=== PATIENT | male | born 1960 | race Caucasian/White ===

== ENCOUNTER 2022-11-21 12:53 | Outpatient (CLI) | payer OTHER, SELFPAY | END 2022-11-21 12:54 | disposition home or self-care (01) | PROVIDERS: PCP Internal Medicine; Visit Provider Otolaryngology | DX: H93.12 Tinnitus, left ear (principal); H90.3 Sensorineural hearing loss, bilateral | CPT/HCPCS: 92557; 92567 ==

== ENCOUNTER 2025-01-21 07:56 | Outpatient (CLI) | payer OTHER, SELFPAY ==
--- OUTSIDE RECORDS SUMMARY | 2025-01-21 08:02 | XMS_ITS | Clinical Summary ---
Author Organization [facility] Address [address] [place] [address] Care Team Providers Care Testing Coordinator Name Role Phone No, Physician Primary Care Provider [phone] Allergies No known active allergies Medications OneTouch Verio test strips strip 08/11/2020 Active Trulicity 1.5 mg/0.5 mL pen injector 10/18/2020 Active OneTouch Delica Plus Lancet 33 gauge misc 10/18/2020 Active losartan (COZAAR) 25 mg tablet 10/18/2020 Active metFORMIN XR (GLUCOPHAGE XR) 500 mg 24 hr tablet 10/18/2020 Active metoprolol XL (TOPROL-XL) 50 mg extended release tablet 10/18/2020 Acti ve pravastatin (PRAVACHOL) 20 mg tablet 10/18/2020 Active sertraline (ZOLOFT) 50 mg tablet 10/18/2020 Active traMADoL (ULTRAM) 50 mg tablet Take 50 mg by mouth 2 (two) times a day as needed 10/04/2020 Active naproxen (NAPROSYN) 500 mg tablet Take 1 tablet (500 mg total) by mouth 2 (two) times a day with meals 60 tablet 2 10/19/2020 Active Active Problems Problem Noted Date Diagnosed Date Primary osteoarthritis of right knee 10/19/2020 Hypersomnia with sleep apnea 09/11/2012 Overview (08/22/2016): Hypersomnia with sleep apnea Adiposity 09/11/2012 Overview (08/22/2016): Obesity Obstructive sleep apnea syndrome 09/11/2012 Overview (08/23/2016): Obstructive sleep apnea syndrome Surgical History Surgery Date Site/Laterality Comments CHOLECYSTECTOMY Cholecystectomy Medical History Medical History Date Comments Hypertension Hypertension Family History Medical History Relation Name Comments Diabetes Father Diabetes mellit us; Relation Name Status Comments Father Social History Tobacco Use Types Packs/Day Years Used Date Smoking Tobacco: Never Assessed Alcohol Use Standard Drinks/Week Comments No 0 (1 standard drink = 0.6 oz pur e alcohol) Sex and Gender Information Value Date Recorded Sex Assigned at Not on file 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 Gender Identity Not on file Sexual Orientation Not on file Obstetrics History Last Filed Vital Signs Vital Sign Reading Time Taken Comments Blood Pressure 160/92 10/19/2020 10:16 AM CDT Pulse 109 10/19/2020 10:16 AM CDT Temperature - - Respiratory Rate - - Oxygen Saturation 97% 12/17/2013 2:56 PM CDT Inhaled Oxygen Concentration - - Weight 115.6 kg (254 lb 12.8 oz) 2020 10:16 AM CDT Height 170.2 cm (5' 7) 10/19/2020 10:1 6 AM CDT Body Mass Index 39.91 10/19/2020 10:16 AM CDT Plan of Treatment Health Maintenance Due Date Last Done Comments Depression Screening 1960 Fall Risk Assessment 1960 Hepatitis C Screening 1960 Prostate Cancer Screening-PSA 1960 Zoster Vaccine (1 of 2) 2008 Abdominal Aortic Aneurysm (A AA) Screen 10/15/2023 Well Visit 65+ 10/15/2023 Colon Cancer Screening-Colonoscopy 04/26/20242013, 04/26/2014 Influenza Vaccine (#1) 2025 , 05/26/2018, 02/15/2017, Additional history exists DTaP/Tdap/Td Vaccine (2 - Td or Tdap) 01/12/2026 01/13/2016, 02/27/2005 Hepatitis B Screening Completed 07/31/2005 , 02/27/2005, 01/26/2005 Pneumococcal vaccine 65+ Completed 03/27/2023, 03/21 Procedures Procedure Name Priority Date/Time Associated Diagnosis Comments COLONOSCOPY IMAGES 04/26/2014 from Last 3 Months or Most Recently Relevant to Health Maintenance Results * COLONOSCOPY IMAGES (04/26/2014) Anatomical Region Laterality Modality Other Narrative 04/26/2014 Ordered by an unspecified provider. us Historical Provider GI PROCEDURE ORDERABLES F inal Result from Last 3 Months or Most Recently Relevant to Health Maintenance Insurance [employer] C[employer] ALLEGIANCE Care Teams Testing Coordinator Relationship Specialty Start Date End Date No, Physician PCP - General 08/16/23
--- OUTSIDE RECORDS SUMMARY | 2025-01-21 08:02 | XMS_ITS | Clinical Summary ---
Author Organization [facility] Address [address] [place] [address] Phone Care Team Providers Care Automatic Blocker Name Role Phone Lis Mensah MD Primary Care Provider [phone] Social History Tobacco Use Types Packs/Day Years Used Date Smoking Tobacco: Never Assessed Sex and Gender Information Value Date Recorded Sex Assigned at Not on file Legal Sex Male 10:22 PM CDT Gender Identity Not on file Sexual Orientation Not on file Plan of Treatment Health Maintenance Due Date Last Done Comments Hepatitis C Virus (HCV) Screening 1960 Cologuard 10/15/2003 Colonoscopy 10/15/2003 Colorectal Cancer Screening 10/15/2003 Immunochemical Fecal Occult Blood 10/15/2003 Zoster Immunization (1 of 2) 2008 Pneumococcal Immunization (50+ years) (2 of 2 - PCV) 04/14/2015 04/14/2014 SARS-COV-2 Immunization ( season) 2024 12/28/2021, 09/09/2020, 08/12/2020 Influenza Immunization (#1) 01/18/2025/0 11/2018, 02/15/2017, 03/16/2016, Additional history exists Respiratory Syncytial Virus (RSV) Immunization (Adult) (1 - 1-dose 75+ series) 2033 Hepatitis B Immunization Completed 006, 02/27/2005, 01/26/2005 Pneumococcal Immunization Combined Discontinued 04/14/2014 DTaP/Tdap/Td Immunization Discontinued 01/13/2016, 03/2005 TdaP Immunization Completed 01/13/2016 Human Papillomavirus (HPV) Immunization Aged Out No longer eligible based on patient's age to complete this topic Meningococcal Immunization (ACWY) Aged Out No longer eligible based on patient's age to complete this topic Rotavirus Immunization Aged Out No lo nger eligible based on patient's age to complete this topic Insurance CIG[employer] on file CIGNA on file CIG[employer] Care Teams Automatic Blocker Relationship Specialty Start Date End Date Lis Mensah MD [address] [place] [address] PCP - General Internal Medicine 10/04/20
--- OUTSIDE RECORDS SUMMARY | 2025-01-21 08:02 | XMS_ITS | Encounter Summary ---
Author Organization [facility] Address [address] [place] [address] Phone Care Team Providers Care Appointment Scheduler Name Role Phone Lis Mensah MD Primary Care Provider [phone] Reason for Referral * Radiology Services (Routine) - Closed Specialty Diagnoses / Procedures Referred By Contac t Referred To Contact Radiology Diagnoses Right knee pain, unspecified chronicity Procedures XR KNEE 1 OR 2 VIEWS RIGHT Sindy Mensah MD Phone: tel: fax: Referral ID Status Reason Start Date Expiration Date Visits Re quested Visits Authorized [id number] Closed 10/04/2020 1 1 Encounter Details Date Type Department Care Team (Latest Contact Info) Description 10/04/2020 Transcribe Orders [facility] Ad[facility] [address] [place] [address] [place] [id number] [address] Right knee pain, unspecified chronicity (Primary Dx) Social History Tobacco Use Types Packs/Day Years Used Date Smoking Tobacco: Never Assessed Sex and Gender Information Value Date Recorded Sex Assigned at Not on file Legal Sex Male 10:22 PM CDT Gender Identity Not on file Sexual Orientation Not on file COVID-19 Exposure Response Date Recorded In the last month, have you been in contact with someone who was confirmed or suspected to have Coronavirus / COVID-19? No / Unsure 10/04/2020 12:10 PM CDT documented as of this encounter Plan of Treatment Not on file documented as of this encounter Results * XR KNEE 1 OR 2 VIEWS RIGHT (10/04/2020 12:59 PM CDT) Anatomical Region Laterality Modality LOWER EXTREMITY, knee Right Digital Ra diography 10/05/2020 3:58 PM CDT Impressions 10/05/2020 4:01 PM CDT IMPRESSION: 1. No acute bony abnormality in the right knee. 2. Mild osteoarthritic changes with very mild narrowing of medial compartment of joint space and tiny tricompartment osteophytes. 3. Small to moderate suprapatellar joint effusion. Narrative 10/05/2020 4:01 PM CDT EXAM DESCRIPTION: XR KNEE 1 OR 2 VIEWS RIGHT REASON FOR STUDY: Medial right knee pain for 8 weeks. No known injury. TECHNIQUE: AP and lateral radiographic views acquired of the right knee. COMPARISON: None FINDINGS: BONES/JOINTS: No acute fracture, malalignment or osseous abnormalities. Tiny tricompartment osteophytes. Very mild narrowing of medial compartment. Small to moderate suprapatellar joint effusion. SOFT TISSUES: Unremarkable. OTHER: No other significant finding. THIS IS AN ELECTRONICALLY VERIFIED FINAL REPORT 10/05/2020 3:58 PM - Electronically signed by Iraj Goldman M.D. RB: [email or web address] Report ID: [id number] Reading Location: [id number] Procedure Note Iraj Goldman MD - 10/05/2020 EXAM DESCRIPTION: XR KNEE 1 OR 2 VIEWS RIGHT REASON FOR STUDY: Medial right knee pain for 8 weeks. No known injury. TECHNIQUE: AP and lateral radiographic views acquired of the right knee. COMPARISON: None FINDINGS: BONES/JOINTS: No acute fracture, malalignment or osseous abnormalities. Tiny tricompartment osteophytes. Very mild narrowing of medial compartment. Small to moderate suprapatellar joint effusion. SOFT TISSUES: Unremarkable. OTHER: No other significant finding. THIS IS AN ELECTRONICALLY VERIFIED FINAL REPORT 10/05/2020 3:58 PM - Electronically signed by Iraj Goldman M.D. RB: [email or web address] Report ID: [id number] Reading Location: [place] [address] IMPRESSION: 1. No acute bony abnormality in the right knee. 2. Mild osteoarthritic changes with very mild narrowing of medial compartment of joint space and tiny tricompartment osteophytes. 3. Small to moderate suprapatellar joint effusion. Sindy Mensah MD IMG DIAGNOSTIC ORDERABLES F inal Result documented in this encounter Visit Diagnoses Diagnosis Right knee pain, unspecified chronicity- Primary Right knee pain, unspecified chronicity documented in this encounter Care Teams Appointment Scheduler Relationship Specialty Start Date End Date Lis Mensah MD [address] [place] [address] PCP - General Internal Medicine 10/04/20 documented as of this encounter
--- OUTSIDE RECORDS SUMMARY | 2025-01-21 08:02 | XMS_ITS | Clinical Summary ---
Author Organization [facility] ([facility]) Aframe [place] Address [address] [place] [id number] Care Team Providers Care Counter Checker Name Role Phone Carisa Heredia MD Primary Care Provider [phone] Allergies No known active allergies Medications blood sugar diagnostic (OneTouch Verio test strips) Strip 1 Strip by See Admin Instructions route see administration instructions. 08/12/19 21 Active lancets (OneTouch Delica Plus Lancet) 33 gauge by See Admin Instructions route see administration instructions. 10/19/19 21 Active aspirin (ECOTRIN EC) 81 mg Tablet, Delayed Release (E.C.) Take 81 mg by mouth daily. Active cyanocobalamin (Vitamin B-12) 1,000 mcg TabletIndications: Vitamin B 12 deficiency Take 1 Tablet (1,000 mcg) by mouth daily. 06/02/19 25 Active Irbesartan (AVAPRO) 75 mg tabletIndications: Type 2 diabetes mellitus with microalbuminuria, without long-term current use of insulin (CMS/HCC) Take 1 Tablet (75 mg) by mouth daily. 90 Tablet 1 10/17/19 25 Active metFORMIN (GLUCOPHAGE) 1,000 mg tablet Take 1 Tablet (1,000 mg) by mouth 2 times daily with meals. 180 Tablet 10/17/19 25 Active rosuvastatin (CRESTOR) 20 mg tabletIndications: Mixed hyperlipidemia Take 1 Tablet (20 mg) by mouth daily. 90 Tablet 1 10/17/19 25 Active sertraline (Zoloft) 100 mg tabletIndications: Anxiety and depression Take 1 Tablet (100 mg) by mouth late in the day. 90 Tablet 1 10/17/19 25 Active empagliflozin (Jardiance) 25 mg tablet Take 1 Tablet (25 mg) by mouth daily in the morning. 90 Tablet 1 11/28/19 Active cholecalciferol, Vitamin D3, (VITAMIN D3) 25 mcg (1,000 unit) Capsule Take by mouth daily. Active dulaglutide (TRULICITY) 4.5 mg/0.5 mL injectionIndicatio ns:Type 2 diabetes mellitus with hyperosmolarity without coma, without long-term current use of insulin (CMS/HCC) Inject 0.5 mL (4.5 mg) by subcutaneous injection every 7 days. 6 mL 1 01/02/20 25 Active dulaglutide (TRULICITY) 4.5 mg/0.5 mL injectionIndicatio ns:Type 2 diabetes mellitus with hyperosmolarity without coma, without long-term current use of insulin (CMS/HCC) Inject 0.5 mL (4.5 mg) by subcutaneous injection every 7 days. 6 mL 1 07/23/19 25 2024 Disconti nued(Reo rder) Active Problems Problem Noted Date Diagnosed Date Hearing loss 09/23/2023 Severe obesity (BMI 35.0-39.9) with comorbidity 03/27/2023 DM (diabetes mellitus), type 2 03/18/2023 Benign hypertension 03/18/2023 Anxiety and depression 03/18/2023 Arthritis of knee 03/18/2023 Hyperlipidemia 03/18/2023 Encounters Date Type Department Care Team Description 01/06/2025 External Device Data STL ABSTRACTION Provider, Abstract 01/01/2025 2:30 PM CDT Office Visit [facility] at [facility] [employer] [place] [address] [place] [place] [address] Carisa Heredia MD Type 2 diabetes mellitus with hyperosmolarity without coma, without long-term current use of insulin ([facility]/HCC) (Primary Dx); Severe obesity (BMI 35.0-39.9) with comorbidity (CMS/HCC); Bilateral hearing loss, unspecified hearing loss type; Benign hypertension; Prostate cancer screening 12/11/2024 Results Follow-Up [facility] at [facility] [employer] [place] [address] [place] [address] Carisa Heredia MD VITAMIN B12 LEVEL, HEMOGLOBIN A1C 12/10/2024 7:40 AM CDT Clinical Support [facility] at Work [employer] [place] [address] [place] [phone] Vitamin B 12 deficiency; Type 2 diabetes mellitus with microalbuminuria, without long-term current use of insulin ([facility]) 12/02/2024 External Device Data STL ABSTRACTION Provider, Abstract 12/02/2024 External Device Data STL ABSTRACTION Provider, Abstract 11/27/2024 Refill [facility] at Work [employer] [place] [address] [place] [phone] Padmini Alvarenga, ANP 11/03/2024 External Device Data STL ABSTRACTION Provider, Abstract from Last 3 Months Immunizations Immunization Administration Dates Next Due (ADACEL/BOOSTRIX)(10 YR UP) TDAP VACCINE, 0.5ML, IM 01/13/2016 (PNEUMOVAX 23)(50 YRS UP) PN EUMOCOCCAL POLYSACCHARIDE (PPV23) 0.5 ML, IM 04/14/2014 (PREVNAR 20)(6 WKS UP) PNEUM OCOCCAL CONJUGATE VACCINE 20-VALENT (PCV20), POLYSACCHARIDE [id number] CONJUGATE, ADJUVANT 0.5 ML (PF) IM 02/24/2024,03/27/2023 (SHINGRIX)(50 YRS UP) ZOSTER VACCINE RECOMBINANT, 0.5 ML, IM 11/25/2023 INFLUENZA VACCINE QUADRIVALENT 6 MOS UP PF IM INFLUENZA VACCINE TRIVALENT SPLIT VIRUS, (6 MOS UP), 0.5ML (PF), IM 03/23/2024 Family History Medical History Relation Name Comments Cancer Father thyroid Stroke Maternal Grandfather Colon Cancer Maternal Grandmother Other Mother pulmonary fibro sis Diabetes Other Testicular Cancer Paternal Grandfather Stroke Paternal Grandmother Relation Name Status Comments Father Maternal Grandfather Maternal Grandmother Mother Other Paternal Grandfather Paternal Grandmother Social History Tobacco Use Types Packs/Day Years Used Date Smoking Tobacco: Former Cigarettes Smokeless Tobacco: Never Tobacco Cessation:Counseling Given: Not Answered Alcohol Use Standard Drinks/Week Comments Not Currently 0 (1 standard drink = 0.6 oz pur e alcohol) past drinker Feeling Safe Answer Date Recorded Are you in a relationship wi th someone who hurts you emotionally and/or physically? No 09/28/2024 Sex and Gender Information Value Date Recorded Sex Assigned at Not on file Legal Sex Male 8:47 AM CDT Gender Identity Not on file Sexual Orientation Not on file Last Filed Vital Signs Vital Sign Reading Time Taken Comments Blood Pressure 124/70 01/01/2025 2:05 PM CDT Pulse 102 01/01/2025 2:05 PM CDT Temperature 36.7 C (98.1 F) 01/01/2025 2:05 PM CDT Respiratory Rate 18 01/01/2025 2:05 PM CDT Oxygen Saturation 98% 01/01/2025 2:05 PM CDT Inhaled Oxygen Concentration - - Weight 106.6 kg (235 lb) 01/01/2025 2:05 PM CDT Height 170.2 cm (5' 7) 01/01/2025 2:05 PM CDT Body Mass Index 36.81 01/01/2025 2:05 PM CDT Plan of Treatment Upcoming Encounters Date Type Department Care Team (Late st Contact Info) Description 03/26/2025 7:20 AM PROJECT BUILDER Clinical Support [facility] at [facility] [employer] [place] [address] [place] [phone] 04/02/2025 2:30 PM PROJECT BUILDER Office Visit [facility] at [facility] [place] [address] [place] [address] Carisa Heredia MD [address] [place] [address] 04/14/2025 2:30 PM PROJECT BUILDER Office Visit [facility] at [facility] [employer] [place] [address] [place] [phone] Carisa Heredia MD [address] [place] [address] Health Maintenance Due Date Last Done Comments FIT-DNA Q 3 years 10/15/2003 FIT/FOBT Q 1 year 10/15/2003 Flex Sig/CT Colonography Q 5 years 10/15/2003 RSV VACCINE (60+ or ) (1 - Risk 60-74 years 1-dose series) 2018 Abdominal Aortic Aneurysm (A AA) Screening 10/15/2023 COVID-19 Vaccine (4 - 2023-2 5 season) 2024 12/28/2021, 09/09/2020, 08/12/2020 ZOSTER VACCINE (2 of 2) 01/20/2024 11/25/2023 Preventative Visit- Commercial 05/20/2024 DIABETES ANNUAL FOOT EXAM 11/24/2024 11/25/2023, 12/2023 INFLUENZA VACCINE (#1) 2024 4, 02/22/2023, 03/30/2022, Additional history exists DIABETES ANNUAL RETINAL EXAM 01/27/2025 01/28/2024 DIABETES MICROALBUMIN ANNUAL SCREEN 05/29/2025 05/29/2024, 11/25/2023, 04/25/2023 LDL CHOLESTEROL ANNUAL 05/29/2025 5, 12/16/2023, 04/25/2023 DIABETES HBA1C Q 6 MONTHS 06/12/20252024, 05/29/2024, 11/25/2023, Additional history exists DTAP/TDAP/TD VACCINES (2 - T d or Tdap) 01/12/2026 01/13/2016 COLORECTAL SCREENING 09/28/2034 09/28/2024, 09/28/2024, 04/26/2014, Additional history exists Colorectal Cancer Screening 09/28/2034 PNEUMOCOCCAL VACCINE 50+ YEARS Completed 1 , 03/27/2023, 04/14/2014 Procedures Procedure Name Priority Date/Time Associated Diagnosis Comments HEMOGLOBIN A1C Routine 12/10/2024 7:27 AM CDT Type 2 diabetes mellitus with microalbuminuria, without long-term current use of insulin ([facility]) VITAMIN B12 LEVEL Routine 12/10/2024 7:2 7 AM CDT Vitamin B 12 deficiency COLONOSCOPY REPORT 09/28/2024 9: 32 AM CDT MICROALBUMIN/CREATI NINE RATIO, RANDOM UR Routine 05/29/2024 7:12 AM PROJECT BUILDER Type 2 diabetes mellitus with hyperosmolarity without coma, without long-term current use of insulin ([facility]/HCC) LIPID PANEL Routine 05/29/2024 7:12 AM PROJECT BUILDER Type 2 diabetes mellitus with hyperosmolarity without coma, without long-term current use of insulin (CMS/HCC) Mixed hyperlipidemia from Last 3 Months or Most Recently Relevant to Health Maintenance Results * (ABNORMAL) HEMOGLOBIN A1C (12/10/2024 7:27 AM CDT) HEMOGLOBIN A1C 8.1(H) <5.7 % [facility] Comment: For someone without known diabetes, a hemoglobin A1c value of 6.5% or greater indicates that they may have diabetes and this should be confirmed with a follow-up test. For someone with known diabetes, a value <7% indicates that their diabetes is well controlled and a value greater than or equal to 7% indicates suboptimal control. A1c targets should be individualized based on duration of diabetes, age, comorbid conditions, and other considerations. Currently, no consensus exists regarding use of hemoglobin A1c for diagnosis of diabetes for children. ESTIMATED AVERAGE GLUCOSE (MG/DL) 186 mg/dL [facility] ESTIMATED AVERAGE GLUCOSE (MMOL/L) 10.3 mmol/L [facility] Comment: Test Performed at: [facility] [address] [facility] [place] [address] Syl Huynh MD Blood 12/10/2024 7:27 AM CDT 12/11/2024 4:28 AM CDT us Carisa Heredia MD CHEMISTRY ORDERABLES Final Res ult [facility] [phone] [facility] [address] [facility] [place] [address] * VITAMIN B12 LEVEL (12/10/2024 7:27 AM CDT) VITAMIN B12 566 200 - 1100 pg/mL [facility] Comment: Test Performed at: [facility] [address] [address] Syl Huynh MD Blood 12/10/2024 7:27 AM CDT 12/11/2024 4:28 AM CDT us Carisa Heredia MD CHEMISTRY ORDERABLES Final Res ult [facility] [phone] [facility] [address] [address] * COLONOSCOPY REPORT (09/28/2024 9:32 AM CDT) Narrative Procedure Note Mckenna Burr DO - 09/28/2024 9:31 AM CDT [facility] Endoscopy Patient Name: Gume Clements Procedure Date: 09/28/2024 Date of : 1960 Attending MD: Mckenna Burr DO, Procedure: Colonoscopy Indications: Surveillance: Personal history of colonic polyps (unknown histology) on last colonoscopy more than 5 years ago, Last colonoscopy: 2013 with one small polyp (histology unknown). FH of colon cancer in [facility]. No other known FH of CRC. Providers: Mckenna Burr DO Referring MD: Carisa Heredia MD Medicines: Monitored Anesthesia Care Complications: No immediate complications. Procedure: Informed consent was obtained for the procedure, including moderate sedation after risks were discussed. Based on the pre-procedure assessment, including review of the patient's medical history, medications, allergies, and review of systems, the patient was deemed to be an appropriate candidate for sedation. A timeout was performed. Continuous ECG monitoring, pulse oximetry, blood pressure monitoring, and direct observation were performed. The Colonoscope was introduced through the anus and advanced to the cecum, identified by appendiceal orifice and ileocecal valve. The colonoscopy was performed without difficulty. The ileocecal valve, appendiceal orifice, and rectum were photographed. The quality of the bowel preparation was good. The quality of the bowel preparation was evaluated using the BBPS ([place] Bowel Preparation Scale) with scores of: Right Colon = 2 (minor amount of residual staining, small fragments of stool and/or opaque liquid, but mucosa seen well), Transverse Colon = 3 (entire mucosa seen well with no residual staining, small fragments of stool or opaque liquid) and Left Colon = 3 (entire mucosa seen well with no residual staining, small fragments of stool or opaque liquid). The total BBPS score equals 8. Estimated Blood Loss: Estimated blood loss: none. Findings: A few diverticula were found in the sigmoid colon. Internal hemorrhoids were found during retroflexion. The hemorrhoids were moderate. No other significant abnormalities were identified in a careful examination of the remainder of the colon. No additional abnormalities were found on retroflexion. Impression: - Diverticulosis in the sigmoid colon. - Internal hemorrhoids. - No specimens collected. Recommendation: - Discharge patient to home. - High fiber diet. - Repeat colonoscopy in 10 years for screening purposes. Consider a sooner exam if indicated based on interval family history or new symptoms. - Return to primary care physician as previously scheduled. - Your pathology results typically return within 3-5 business days. You may receive an email/Note notification that results are back. However, this does not mean that the physician has reviewed them yet. It will typically take 5-7 business days for the physician to review the results. We will notify you of the results once the physician has had a chance to review them. If you have not received results from the physician's office within 10 business days from the procedure, then please contact us at that point. Mckenna Burr DO 09/28/2024 9:31:46 AM Number of Addenda: [address]; [place] [address] us Mckenna Burr DO GI PROCEDURE ORDERABLES Final Re sult * (ABNORMAL) MICROALBUMIN/CREATININE RATIO, RANDOM UR (05/29/2024 7:12 AM PROJECT BUILDER) Creatinine, Urine 76 20 - 320 mg/dL [facility] MICROALBUMIN, URINE 6.2 See Note: mg/dL [facility] Comment: Reference Range: Reference Range Not established MICROALBUMIN/CREAT RATIO, UR 82(H) <30 mg/g creat [facility] Comment: The ADA defines abnormalities in albumin excretion as follows: Albuminuria Category Result (mg/g creatinine) Normal to Mildly increased <30 Moderately increased 30-299 Severely increased > OR = 300 The ADA recommends that at least two of three specimens collected within a 3-6 month period be abnormal before considering a patient to be within a diagnostic category. Test Performed at: [facility] [id number] [facility] [place] [address] Syl Huynh MD Urine URINE SPECIMEN OBTAINED BY CLEAN CATCH PROCEDURE / Unknown 05/29/2024 7:12 AM PROJECT BUILDER 05/30/2024 5:56 AM PROJECT BUILDER us Padmini Alvarenga ANP URINE ORDERABLES Final Resul t [facility] [phone] [facility] [address] [facility] [place] [address] * (ABNORMAL) LIPID PANEL (05/29/2024 7:12 AM PROJECT BUILDER) CHOLESTEROL 116 <200 mg/dL [facility] HDL 33(L) > OR = 40 mg/dL [facility] TRIGLYCERIDE 98 <150 mg/dL [facility] LDL CALCULATED 65 mg/dL (calc) [facility] Comment: Reference range: <100 Desirable range <100 mg/dL for primary prevention; <70 mg/dL for patients with CHD or diabetic patients with > or = 2 CHD risk factors. LDL-C is now calculated using the Marcos-Rocco calculation, which is a validated novel method providing better accuracy than the Friedewald equation in the estimation of LDL-C. Marcos SS et al. GERMAN. 2013;310(19): 9915-0924 (http://education.Pearltrees/faq/RAI844) CHOL/HDL RATIO 3.5 <5.0 (calc) [facility] NON-HDL CHOLESTEROL 83 <130 mg/dL (calc) [facility] Comment: For patients with diabetes plus 1 major ASCVD risk factor, treating to a non-HDL-C goal of <100 mg/dL (LDL-C of <70 mg/dL) is considered a therapeutic option. Test Performed at: [facility] [address] [address] Syl Huynh MD Blood 05/29/2024 7:12 AM PROJECT BUILDER 05/30/2024 5:56 AM PROJECT BUILDER us Padmini Alvarenga [facility] CHEMISTRY ORDERABLES Final R esult [facility] [phone] [facility] [address] [phone] from Last 3 Months or Most Recently Relevant to Health Maintenance Insurance [employer] OPEN ACCESS ALLEGIANCE OPEN ACCESS Advance Directives For more information, please contact: [phone] * Full Code (Latest Code Status on File) Date Activated Date Inactivated Comments 09/28/2024 8:28 AM 09/28/2024 12:05 PM Care Teams Counter Checker Relationship Specialty Start Date End Date Carisa Heredia MD [address] [place] [address] PCP - General Internal Medicine 10/30/23
== END 2025-01-21 07:57 | disposition home or self-care (01) ==
LOC: ANHAUDIO 07:57
PROVIDERS: PCP Internal Medicine
DX: H90.42 Sensorineural hearing loss, unilateral, left ear, with unrestricted hearing on the contralateral side (principal)
CPT/HCPCS: 92557; 92567